=== PATIENT | male | born 1965 ===

== ENCOUNTER → 2019-01-16 | Outpatient (CLI) | payer SELFPAY | LOC: LAB 15:00 → LAB SHORT 15:00 | DX: N39.0 Urinary tract infection, site not specified (principal) | CPT/HCPCS: 87086 ==

== ENCOUNTER → 2019-01-26 | Outpatient (CLI) | payer SELFPAY | LOC: LAB 15:06 → LAB SHORT 15:06 | DX: R30.0 Dysuria (principal) | CPT/HCPCS: 87086 ==